=== PATIENT | female | born 1965 | race Caucasian/White ===

== ENCOUNTER 2017-01-22 16:08 | Emergency (ER) | payer BC ==
[~2017-01-22 16:08] MED LIST: ACET500CAP PO; ADVIL PO; AMOXIL875 MG PO; DIL4TAB PO; FL250 PO; PAX20 PO; PREM45 PO; PREM625 PO; PRILOSEC40 MG PO; T PO; ZOFRAN4 PO
[2017-01-22 16:50] LABS: BASOPHILS 0.4 %; BASOPHILS ABSOLUTE 0.05 10/3/uL (0.0-0.16); EOSINOPHILS 2.2 %; EOSINOPHILS ABSOLUTE 0.29 10/3/uL (0.0-0.53); HEMOGLOBIN 15.1 g/dL (12.0-16.0); IMMATURE GRANULOCYTES 0.4 %; IMMATURE GRANULOCYTES ABSOLUTE 0.05 10/3/uL (0.0-0.11); LYMPHOCYTES 35.2 %; LYMPHOCYTES ABSOLUTE 4.74 10/3/uL (0.67-4.30); MEAN CORPUS HGB CONC 34.5 g/dL (32.0-36.0); MEAN CORPUSCULAR HEMOGLOB 31.9 pg (26.0-34.0); MEAN CORPUSCULAR VOLUME 92.4 fL (80-100); MEAN PLATELET VOLUME 9.3 fL (9.2-13.0); MONOCYTES 5.3 %; MONOCYTES ABSOLUTE 0.72 10/3/uL (0.21-1.20); NEUTROPHILS 56.5 %; NEUTROPHILS ABSOLUTE 7.61 10/3/uL (2.02-8.40); PLATELET COUNT 485 10/3/uL (150-400); RBC DISTRIBUTION WIDTH 13.5 % (12.0-16.0); RED CELL COUNT 4.74 10/6/uL (4.0-5.6)
[2017-01-22 16:52] LABS: ER CBC TAT 0 Hrs 07 Mins; HEMATOCRIT 43.8 % (36.0-48.0); MANUAL DIFF NO %; WHITE BLOOD CELLS 13.5 10/3/uL (4.5-10.5)
[2017-01-22 17:00] LABS: INTERNATIONAL NORMAL RATI 0.9 UNITS (-); PARTIAL THROMBO TIME 27.5 SEC (22.5-37.2); PROTIME (NOT ORD) 12.3 SEC (12.0-14.5)
[2017-01-22 17:06] LABS: BUN (BLOOD UREA NITROGEN) 9 MG/DL (6-23); CHEST PAIN PROFILE TAT 0 Hrs 21 Mins; CHLORIDE, SERUM 107 MMOL/L (96-112); CREATININE 0.65 MG/DL (0.55-1.02); GFR AFRICAN AMERICAN 121 ML/MIN (>=60); GFR NON AFRICAN AMERICAN 104 ML/MIN (>=60); GLUCOSE, SERUM 91 MG/DL (60-99); POTASSIUM, SERUM 3.3 MMOL/L (3.5-5.3); SODIUM, SERUM 139 MMOL/L (135-148); TROPONIN I <0.02 NG/ML (<0.05)
[2017-01-22 17:07] LABS: CO2 (CARBON DIOXIDE) 24 MMOL/L (24-34)
[2017-01-22 20:24] LABS: TROPONIN I <0.02 NG/ML (<0.05)
== END 2017-01-22 22:29 | disposition home or self-care (01) ==
LOC: ER 16:08
PROVIDERS: Emergency Medicine; Nurse Practitioner
DX: J44.9 Chronic obstructive pulmonary disease, unspecified (principal); E87.6 Hypokalemia; F17.200 Nicotine dependence, unspecified, uncomplicated; Z87.442 Personal history of urinary calculi; F32.9 Major depressive disorder, single episode, unspecified; Z85.820 Personal history of malignant melanoma of skin; Z88.5 Allergy status to narcotic agent; Z79.899 Other long term (current) drug therapy
CPT/HCPCS: 71020; 80048; 83690; 83735; 84443; 84484; 85025; 85379; 85610; 85730; 93005; 96372; 99285; A9270-GY; J2930